=== PATIENT | female | born 1945 | race Caucasian/White ===

== ENCOUNTER 2016-10-25 20:43 | Inpatient (IN) | payer OTHER ==
[~2016-10-25] VITALS: Ht 160 cm; Wt 62.3 kg
--- NOTE | 2016-10-25 21:04 | NUR ---
PT HERE W/ RECTAL BLEEDING DURING BM'S SINCE YESTERDAY. DENIES PAIN. DENIES CONSTIPATION. DENIES N/V/D. MOH[place]K-SPEAKING ONLY. WORRIED BECAUSE SISTER IN [place] W/ SAME & WAS DX W/ CANCER. CHAPERONED RECTAL EXAM BY DR. REBOLLEDO, [facility] RED BLOOD, [facility] (+).
[2016-10-25 21:31] LABS: BASOPHIL % 0.7 % (0-2); PLATELET COUNT 247 x10^3mcL (130-400); RED CELL DISTRIBUTION WIDTH 13.7 % (11.5-14.5)
[2016-10-25 22:15] LABS: CARBON DIOXIDE 26.5 mmol/L (21-32); POTASSIUM SERUM 3.5 mmol/L (3.5-5.1)
--- NOTE | 2016-10-25 22:16 | NUR ---
RESTING QUIETLY, ADDITIONAL WARM BLANKET GIVEN.
[2016-10-25 22:18] LABS: ALBUMIN 3.4 g/dL (3.4-5.0); CALCIUM 8.5 mg/dL (8.5-10.1); TOTAL PROTEIN, SERUM 7.2 g/dL (6.4-8.2)
[2016-10-25 22:19] LABS: BILIRUBIN TOTAL 0.3 mg/dL (0.20-1.00)
--- NOTE | 2016-10-25 22:59 | NUR ---
BILAT NARES SWABBED FOR MRSA SCREENING.
--- NOTE | 2016-10-25 23:07 | NUR ---
PT TO BE ADMITTED BUT NO AVAILABLE MEDS. MED STUDENT @ BEDSIDE. MAINTENANCE FLUIDS BEGUN ORDERED. PT GIVEN URINE CUP & INSTRUCTED TO OBTAIN SPECIMEN.
[2016-10-26] VITALS (7 sets, daily range): BP systolic 105–142; BP diastolic 70–94
[2016-10-26 00:08] LABS: CHOLESTEROL/HDL RATIO 3.7; MAGNESIUM 2.3 mg/dL (1.8-2.4); PHOSPHOROUS 4.1 mg/dL (2.5-4.9)
[2016-10-26 00:11] LABS: T3 TOTAL 1.23 ng/mL
--- NOTE | 2016-10-26 00:16 | NUR ---
PER HOUSE SUP, NO NEED FOR SCD'S TO BE PLACED IN ER, TO TO PLACED WHEN PT IN ADMITTED TO MS/TELE.
[2016-10-26 00:17] LABS: FREE T4 1.05 ng/dL (0.76-1.46); T4(THYROXINE) 8.2 ug/dL (4.7-13.3)
[2016-10-26 01:32] LABS: UA SPECIFIC GRAVITY <=1.005 (1.005-1.035); microscopic required? YES; urine erythrocyte TRACE (NEGATIVE)
--- NOTE | 2016-10-26 01:44 | NUR ---
REPORT TO LAILA.
--- NOTE | 2016-10-26 02:00 | NUR ---
REC'D PT FROM ER VIA [facility]. PT IS AAOX4. TELE #56 NSR. DENIES PAIN OR DISCOMFORT. LUNG SOUNDS CLEAR. NO SOB NOTED. ABD SOFT. BS ACTIVE X4. NO SIGNS OF BLEEDING NOTED. IV NOTED TO RFA. INTACT AND PATENT. SAFETY AND COMFORT MEASURES IN PLACE. BED IN LOWEST POSITION. CALL LIGHT WITHIN REACH. WILL CONTINUE TO MONITOR.
--- NOTE | 2016-10-26 05:07 | NUR ---
PT RESTING IN BED. NO SIGNIFICANT CHANGES DURING SHIFT. IVF INFUSING WELL. CALL LIGHT WITHIN REACH. WILL CONTINUE TO MONITOR.
[2016-10-26 06:17] LABS: BASOPHIL % 0.5 % (0-2); PLATELET COUNT 237 x10^3mcL (130-400); RED CELL DISTRIBUTION WIDTH 13.5 % (11.5-14.5)
--- NOTE | 2016-10-26 07:20 | NUR ---
PT RECEIVED. AT THIS TIME PATIENT IS LYING IN BED. FAMILY AT BEDSIDE. PT IS AAO X4. TELE NUMBER [address] SCDS ARE IN PLACE. LUNG SOUNDS ARE CTA ON ROOM AIR. PT HAS A STEADY BALANCED GAIT WHEN AMBULATING, BUT SOME GENERALIZED WEAKNESS. DENIES PAIN AT THIS TIME. NS INFUSING AT 100ML/HR IN RIGHT FOREARM. PATIENT IS CALM. ALL SAFETY PRECAUTIONS IN PLACE. CALL LIGHT WITHIN REACH. WILL CONTINUE TO MONITOR.
[2016-10-26 07:54] LABS: CALCIUM 8.4 mg/dL (8.5-10.1); CARBON DIOXIDE 24.8 mmol/L (21-32); CHLORIDE SERUM 110 mmol/L (98-107); CREATININE SERUM 0.9 mg/dL (0.6-1.0); GFR1 > 60 mL/min; GLUCOSE SERUM 91 mg/dL (74-106); SODIUM SERUM 145 mmol/L (136-145)
--- NOTE | 2016-10-26 09:30 | NUR ---
PHYSICIAN TEAM MADE ROUNDS AND TALKED TO THE PATIENT AT BEDSIDE. PATIENT WAS UPDATED ON THE PLAN OF CARE. ALL QUESTIONS ANSWERED. ALL SAFETY PRECATIONS IN PLACE. WILL CONTINUE TO MONITOR.
--- NOTE | 2016-10-26 12:30 | NUR ---
PATIENT IS LYING IN BED WITH FAMILY AT BEDSIDE. DENIES PAIN. NO SIGNS OF ACUTE DISTRESS ARE PRESENT. WILL CONTINUE TO MONITOR.
--- NOTE | 2016-10-26 20:16 | NUR ---
PT IS A/O X4, VERBAL RESPONSIVE, ABLE TO TELL WHAT SHE NEEDS. LUNG SOUND CLEAR BILATERAL, NO COUGH, NO SOB, PT IS ON TELE 56, NSR, DENY ANY CHEST PAIN OR DISCOMFORT, BOWEL SOUND PRESENT ALL 4 QUADRANTS, NO DISTENTION, NO TENDER. PEDAL PULSE PRESENT BOTH FEET, NO EDEMA, PT CONTINUE ON BOWEL PREP FOR TOMORROW COLONOSCOPY PROCEDURE, IV AT RIGHT WRIST, NO LEAKING, NO INFILTRATION. ALL ADLS ASSIST, ALL NEED MET, CALL LIGHT IN REACH, WILL CONTINUE TO MONITOR.
--- NOTE | 2016-10-27 05:13 | NUR ---
PT IS A/O X4, VERBAL RESPONSIVE, FAMILY AT BEDSIDE, DENY ANY RESPIRATORY DISTRESS, DENY ANY PAIN OR DISCOMFORT, PT HAS BEEN NPO SINCE MIDNIGHT, LAST BM IS CLEAR, ALL ADLS ASSIST, ALL NEED MET, CALL LIGHT IN REACH, WILL CONTINUE TO MONITOR.
[2016-10-27 05:31] VITALS: BP 114/67
[2016-10-27 06:04] LABS: BASOPHIL % 0.4 % (0-2); PLATELET COUNT 245 x10^3mcL (130-400); RED CELL DISTRIBUTION WIDTH 13.5 % (11.5-14.5)
[2016-10-27 06:16] LABS: CALCIUM 8.8 mg/dL (8.5-10.1); CARBON DIOXIDE 27.4 mmol/L (21-32); POTASSIUM SERUM 4.2 mmol/L (3.5-5.1)
--- NOTE | 2016-10-27 07:20 | NUR ---
PT RECEIVED. AT THIS TIME PATIENT IS RESTING IN BED WITH FAMILY AT BEDSIDE. PATIENT IS AAOX4. TELE MONITOR [address] PATIENT RESPIRATIONS ARE EVEN AND UNLABORED ON ROOM AIR. PATIENT IS NPO AT THIS TIME. PATIENT HAS SOME GENERALIZED WEAKNESS BUT IS AMBULATORY WITH STEADY GAIT. DENIES PAIN AT THIS TIME. NS INFUSING AT 100ML/HR IN THE RFA. ALL SAFETY MEASURES IN PLACE. WILL CONTINUE TO MONITOR.
[2016-10-27 09:21] VITALS: BP 117/61
[2016-10-27 12:15] VITALS: BP 117/70
--- NOTE | 2016-10-27 13:30 | NUR ---
PATIENT IS RESTING IN BED WITH FAMILY AT BEDSIDE. VITAL SIGNS STABLE. PATIENT IS IN NO ACUTE DISTRESS. DENIES PAIN. WILL CONTINUE TO MONITOR.
--- NOTE | 2016-10-27 16:20 | NUR ---
PT RETURNED FROM COLONOSCOPY. VITAL SIGNS STABLE AT THIS TIME. NO C/O PAIN. ESTIMATED BLOOD LOSS FOR PROCEDURE WAS MINIMAL TO NONE. AT THIS TIME THE PATIENT IS LYING IN BED WITH FAMILY AT BEDSIDE. PT DOES NOT APPEAR IN ACUTE DISTRESS. WILL CONTINUE TO MONITOR. ALL SAFETY MEASURES IN PLACE. CALL LIGHT WITHIN REACH.
[2016-10-27 16:34] VITALS: BP 148/78
--- NOTE | 2016-10-27 19:12 | NUR ---
PT HAS BEEN ENDORSED TO NIGHT NURSE. AT THIS TIME THE PATIENT IS INTERACTING WITH HER FAMILY AT BEDSIDE. VITAL SIGNS STABLE. DENIES PAIN. ALL SAFETY MEASURES IN PLACE.
--- NOTE | 2016-10-27 19:41 | NUR ---
PT IS A/O X4, VERBAL RESPONSIVE, ABLE TO TELL WHAT SHE NEEDS. LUNG SOUND CLEAR BILATERAL, NO COUGH, NO SOB, PT IS ON TELE 56, NSR, DENY ANY CHEST PAIN OR DISCOMFORT, BOWEL SOUND PRESENT ALL 4 QUADRANTS, NO DISTENTION, NO TENDER. PEDAL PULSE PRESENT BOTH FEET, NO EDEMA NOTED, IV AT RIGHT FA, NO LEAKING, NO INFILTRATION. ALL ADLS ASSIST, ALL NEED MET, CALL LIGHT IN REACH, WILL CONTINUE TO MONITOR.
[2016-10-27 22:12] VITALS: BP 112/52
--- NOTE | 2016-10-28 05:09 | NUR ---
PT IS AWAKE, VERBAL RESPONSIVE, DENY ANY RESPIRATORY DISTRESS, DENY ANY PAIN OR DISCOMFORT, IV AT RIGHT FA, NO LEAKING, NO INFILTRATION. ALL ADLS ASSIST, ALL NEED MET, CALL LIGHT IN REACH, WILL CONTINUE TO MONITOR.
[2016-10-28 05:33] VITALS: BP 138/75
[2016-10-28 06:21] LABS: BASOPHIL % 0.5 % (0-2); PLATELET COUNT 226 x10^3mcL (130-400); RED CELL DISTRIBUTION WIDTH 13.3 % (11.5-14.5)
[2016-10-28 06:24] LABS: CALCIUM 8.7 mg/dL (8.5-10.1); CARBON DIOXIDE 24.9 mmol/L (21-32); CHLORIDE SERUM 113 mmol/L (98-107); CREATININE SERUM 0.9 mg/dL (0.6-1.0); GFR1 > 60 mL/min; GLUCOSE SERUM 81 mg/dL (74-106); POTASSIUM SERUM 3.8 mmol/L (3.5-5.1); SODIUM SERUM 147 mmol/L (136-145)
--- NOTE | 2016-10-28 07:25 | NUR ---
Pt. AAOX4, RESPIRATIONS EVEN AND UNLABORED. DENIES PAIN/DISCOMFORT. NO DISTRESS NOTED. TELE IN PLACE HR 81. IVF RUNNING TO IV AT RIGHT FOREARM PATENT AND INTACT. BED LOW/LOCKED. CALL LIGHT IN REACH. FAMILY AT BEDSIDE.
--- NOTE | 2016-10-28 08:30 | NUR ---
MADE ROUNDS WITH DR. HENDERSON AND MEDICINE TEAM, TRANFER TO [facility] BEING ARRANGED, IF NO BED AVAILABLE POSSIBLE DISCHARGE HOME AND FOLLOW UP OUTPATIENT, Pt. AGREED WITH PLAN OF CARE.
[2016-10-28 09:35] VITALS: BP 138/71
--- NOTE | 2016-10-28 11:11 | NUR ---
TELE 56 RETURNED Pt. DENIES CHEST PAIN/PRESSURE.
[2016-10-28] MEDS ORDERED: COL100 PO (13:04)
--- NOTE | 2016-10-28 14:29 | NUR ---
Pt. AAOX4, RESPIRATIONS EVEN AND UNLABORED. DENIES PAIN/DISCOMFORT. NO DISTRESS NOTED, ALL RX, DISCHARGE INSTRUCTIONS EXPLAINED TO Pt. AND Pt. DAUGHTER JOLIE MELENDREZ AND VERBALIZED UNDERSTANDING. IV AT RIGHT FOREARM REMOVED WITH CATH INTACT, PRESSURE APPLIED AND NO BLEEDING NOTED. NO S/S GI BLEED AND NO BM SINCE START OF SHIFT. Pt. LEFT WITH ALL BELONGINGS ACCOMPANIED BY Pt. DAUGHTER.
== END 2016-10-28 14:30 | disposition home or self-care (01) | DRG 375 ==
LOC: ED 20:43 → DU 22:33 → MU 10-28 11:13
PROVIDERS: Emergency Medicine; Internal Medicine Gastroenterology; ADMIT Family Medicine
PROC: 0DBP8ZX Excision of Rectum, Via Natural or Artificial Opening Endoscopic, Diagnostic (ICD-10-PCS; principal; 2016-10-27 13:00)
DX: C20 Malignant neoplasm of rectum (principal); E87.0 Hyperosmolality and hypernatremia; N39.0 Urinary tract infection, site not specified; R73.03 Prediabetes; E78.2 Mixed hyperlipidemia; I10 Essential (primary) hypertension; Z68.24 Body mass index [BMI] 24.0-24.9, adult
CPT/HCPCS: 45378; 82962; 83880; 84439; J0696; J1200; J1610; J2250; J2310; J2405; J3010; J3490; J7030; Q0092; Q9966; Q9967